=== PATIENT | male | born 1950 | race Caucasian/White ===

== ENCOUNTER 2018-02-06 10:27 | Emergency (ER) | payer MEDICARE, OTHER ==
[~2018-02-06] VITALS: Ht 165.1 cm; Wt 82.0 kg
[~2018-02-06 10:27] MED LIST: SULF-165; TAMS-11
[2018-02-06] MEDS ORDERED: SODIUM CHLORIDE 0.9% 1,000 ML IV ONE (11:45)
[2018-02-06 12:14] LABS: BASOPHILS % 1.2 % (0.0-2.0); EOSINOPHILS % 2.2 % (0.0-5.0); HEMOGLOBIN. 8.6 g/dL (14.0-18.0); LYMPHOCYTES % 25.6 % (20.0-50.0); MEAN CORPUSCULAR HEMOGLOBIN 22.1 pg (28.0-32.0); MEAN CORPUSCULAR VOLUME 72.1 fL (80.0-94.0); MEAN PLATELET VOLUME 6.1 fl (7.4-10.4); MONOCYTES % 10.8 % (2.0-8.0); NEUTROPHILS % 60.2 % (40.0-76.0); PLATELET 478 x1000/uL (130-400); RED BLOOD CELL COUNT 3.88 mill/uL (4.7-6.1); RED CELL DISTRIBUTION WIDTH 17.7 % (11.6-14.6)
[2018-02-06 12:16] LABS: CLARITY URINE CLOUDY (CLEAR); COLOR URINE ORANGE (YELLOW); KETONES URINE NEGATIVE (NEGATIVE); LEUKOCYTE ESTERASE URINE NEGATIVE (NEGATIVE); NITRITE URINE NEGATIVE (NEGATIVE); OCCULT BLOOD URINE 3+ (NEGATIVE); PROTEIN URINE TRACE (NEGATIVE); SPECIFIC GRAVITY URINE 1.009 (1.005-1.030); UROBILINOGEN URINE 0.2 E.U./dL (0.2-1.0)
[2018-02-06 12:17] LABS: CHLORIDE 110 mEq/L (98-107)
[2018-02-06 12:18] LABS: PROTHROMBIN TIME 9.9 sec (9.4-11.6)
[2018-02-06 14:15] VITALS: BP 172/78
== END 2018-02-06 14:42 | disposition home or self-care (01) ==
LOC: ER 11:08
DX: N40.1 Benign prostatic hyperplasia with lower urinary tract symptoms (principal); R33.8 Other retention of urine; E11.9 Type 2 diabetes mellitus without complications; I10 Essential (primary) hypertension
CPT/HCPCS: 36415; 51702; 80048; 81003; 85025; 85610; 96360; 96361; 99285; J7030